=== PATIENT | female | born 1980 | race Caucasian/White ===

== ENCOUNTER → 2016-09-11 | Outpatient (CLI) | payer OTHER ==
--- NOTE | 2016-09-11 13:09 | REP ---
Clinical: lower back pain. Technique: AP, lateral, bilateral oblique, and coned-down views. Findings: Alignment and lordosis is maintained. The vertebral bodies including transverse process and spinous processes are intact and normal. There is no evidence for acute fracture / compression injury or subluxation. No evidence for spondylolysis or spondylolisthesis. No significant degenerative change is noted. Impression: Normal lumbosacral spine radiograph series. Signed by Nadeem Anthony MD 09/11/2016 12:59 P
== END ==
LOC: M RAD 12:02
PROVIDERS: ATTEND Family Medicine
DX: M54.5 Low back pain (principal)

== ENCOUNTER → 2017-07-27 | Outpatient (REF) | payer OTHER ==
[2017-07-27 12:34] LABS: CHOLESTEROL LEVEL 235 MG/DL (<200); CHOLESTEROL RISK RATIO 4.196 (<5); GLUCOSE, FASTING 99 MG/DL (70-105); HDL CHOLESTEROL 56 MG/DL (>40); LDL CHOLESTEROL 152.4 MG/DL (<100); NON-HDL-C 179 MG/DL; TRIGLYCERIDES LEVEL 133 MG/DL (<150)
== END ==
LOC: M SFHCPLAZ 09:49
DX: Z13.6 Encounter for screening for cardiovascular disorders (principal); E66.9 Obesity, unspecified
CPT/HCPCS: 36415

== ENCOUNTER 2017-09-15 11:27 | Inpatient (IN) | payer OTHER ==
[2017-09-15 13:40] LABS: HEMATOCRIT 40.7 % (36.0-47.0); HEMOGLOBIN 13.7 g/dl (12.0-16.0); MEAN CORPUSCULAR HEMOGLOBIN 28.1 pg (27.0-33.0); MEAN CORPUSCULAR HGB CONC 33.7 g/dl (32.0-36.5); MEAN CORPUSCULAR VOLUME 83.4 fl (80.0-96.0); PLATELET COUNT, AUTOMATED 366 10^3/uL (150-450); RED BLOOD COUNT 4.88 10^6/uL (4.00-5.40); RED CELL DISTRIBUTION WIDTH 13.6 % (11.5-14.5)
[2017-09-15 13:49] LABS: CONTROL LINE HCG INT CTR LINE PRESENT; HCG, SERUM QUALITATIVE NEGATIVE (NEGATIVE)
[2017-09-15 14:06] LABS: AMPHETAMINES LEVEL URINE NEGATIVE (NEGATIVE); BARBITURATES URINE NEGATIVE (NEGATIVE); BENZODIAZEPINES URINE NEGATIVE (NEGATIVE); CANNABINOIDS URINE NEGATIVE (NEGATIVE); COCAINE METABOLITE URINE NEGATIVE (NEGATIVE); METHADONE URINE NEGATIVE (NEGATIVE); OPIATES URINE NEGATIVE (NEGATIVE); PHENCYCLIDINE URINE NEGATIVE (NEGATIVE)
[2017-09-15 14:10] LABS: ALBUMIN 3.6 GM/DL (3.2-5.2); ALKALINE PHOSPHATASE 104 U/L (45-117); ALT/SGPT 18 U/L (12-78); ANION GAP 9 MEQ/L (8-16); AST/SGOT 17 U/L (7-37); BILIRUBIN,DIRECT 0.1 MG/DL (0.0-0.2); BILIRUBIN,TOTAL 0.7 MG/DL (0.2-1.0); BLOOD UREA NITROGEN 11 MG/DL (7-18); CALCIUM LEVEL 8.9 MG/DL (8.5-10.1); CARBON DIOXIDE LEVEL 25 MEQ/L (21-32); CHLORIDE LEVEL 107 MEQ/L (98-107); ETHYL ALCOHOL (ETHANOL) 0.003 % (0.000-0.010); GLOMERULAR FILTRATION RATE > 60.0 (>60); GLUCOSE, FASTING 91 MG/DL (70-100); POTASSIUM SERUM 3.9 MEQ/L (3.5-5.1); SALICYLATE LEVEL < 1.7 MG/DL (5.0-30.0); SODIUM LEVEL 141 MEQ/L (136-145); TOTAL PROTEIN 7.6 GM/DL (6.4-8.2)
[2017-09-15 14:11] LABS: ACETAMINOPHEN LEVEL < 2.0 UG/ML (10.0-30.0)
[2017-09-15] MEDS ORDERED: MOM 30ML SUSPENSION UDC PO (15:15)
[2017-09-15] MEDS ORDERED: OLANZapine 5 MG TAB PO (15:15)
[2017-09-15] MEDS ORDERED: MAALOX 30 ML SUSP *UDC PO (15:15)
[2017-09-15] MEDS: traZODone 50 MG TAB PO (21:06)
[2017-09-16] MEDS: ACETAMINOPHEN TAB 650MG DOSE (2X325MG) PO (08:29)
[2017-09-16] MEDS ORDERED: FLUoxetine 10 MG CAP PO (09:00)
[2017-09-16] MEDS: FLUoxetine 10 MG CAP PO (10:03)
[2017-09-16] MEDS: hydrOXYzine 25 MG TAB PO (10:04)
[2017-09-16] MEDS: traZODone 50 MG TAB PO (21:39)
[2017-09-17] MEDS: FLUoxetine 10 MG CAP PO (08:27)
[2017-09-17] MEDS: hydrOXYzine 25 MG TAB PO (21:04)
[2017-09-17] MEDS: traZODone 50 MG TAB PO (21:04)
[2017-09-18] MEDS: FLUoxetine 20 MG CAP PO (08:46)
[2017-09-18] MEDS: hydrOXYzine 25 MG TAB PO (21:07)
[2017-09-19] MEDS: FLUoxetine 20 MG CAP PO (08:10)
[2017-09-19 13:38] LABS: HEMATOCRIT 39.5 % (36.0-47.0); HEMOGLOBIN 13.3 g/dl (12.0-16.0); MEAN CORPUSCULAR HEMOGLOBIN 28.3 pg (27.0-33.0); MEAN CORPUSCULAR HGB CONC 33.7 g/dl (32.0-36.5); PLATELET COUNT, AUTOMATED 294 10^3/uL (150-450); RED CELL DISTRIBUTION WIDTH 13.4 % (11.5-14.5); WHITE BLOOD COUNT 9.2 10^3/uL (4.0-10.0)
[2017-09-19 14:01] LABS: ALBUMIN 3.7 GM/DL (3.2-5.2); ALBUMIN/GLOBULIN RATIO 0.95 (1.00-1.93); ALKALINE PHOSPHATASE 101 U/L (45-117); ALT/SGPT 21 U/L (12-78); ANION GAP 11 MEQ/L (8-16); AST/SGOT 19 U/L (7-37); BILIRUBIN,TOTAL 0.6 MG/DL (0.2-1.0); BLOOD UREA NITROGEN 14 MG/DL (7-18); CALCIUM LEVEL 8.9 MG/DL (8.5-10.1); CARBON DIOXIDE LEVEL 25 MEQ/L (21-32); CHLORIDE LEVEL 102 MEQ/L (98-107); GLOMERULAR FILTRATION RATE > 60.0 (>60); GLUCOSE, FASTING 116 MG/DL (70-100); MAGNESIUM LEVEL 2.3 MG/DL (1.8-2.4); POTASSIUM SERUM 3.8 MEQ/L (3.5-5.1); SODIUM LEVEL 138 MEQ/L (136-145); TOTAL PROTEIN 7.6 GM/DL (6.4-8.2)
[2017-09-19] MEDS: traZODone 50 MG TAB PO (21:00)
[2017-09-20] MEDS: FLUoxetine 20 MG CAP PO (08:30)
[2017-09-20] MEDS: ACETAMINOPHEN TAB 650MG DOSE (2X325MG) PO ×3 (08:30→21:06)
[2017-09-20] MEDS: traZODone 50 MG TAB PO (21:06)
[2017-09-21] MEDS: FLUoxetine 20 MG CAP PO (08:36)
[2017-09-21] MEDS ORDERED: IBUPROFEN 400 MG TAB PO (11:30)
[2017-09-21] MEDS: traZODone 50 MG TAB PO (20:57)
[2017-09-22] MEDS: FLUoxetine 20 MG CAP PO (09:10)
== END 2017-09-22 15:10 | disposition home or self-care (01) | DRG 882 ==
LOC: M PSY 09-21 13:25 → M ED 11:27 → M ED INP 15:09 → M PSY 17:08
DX: F43.23 Adjustment disorder with mixed anxiety and depressed mood (principal); F41.1 Generalized anxiety disorder; G43.909 Migraine, unspecified, not intractable, without status migrainosus; M54.5 Low back pain; Z88.0 Allergy status to penicillin; Z91.018 Allergy to other foods

== ENCOUNTER → 2017-11-24 | Outpatient (REF) | payer OTHER ==
[2017-11-24 16:23] LABS: HEMATOCRIT 40.3 % (36.0-47.0); HEMOGLOBIN 13.2 g/dl (12.0-15.5); MEAN CORPUSCULAR HEMOGLOBIN 28.2 pg (27.0-33.0); MEAN CORPUSCULAR HGB CONC 32.8 g/dl (32.0-36.5); MEAN CORPUSCULAR VOLUME 86.1 fl (80.0-96.0); PLATELET COUNT, AUTOMATED 312 10^3/uL (150-450); RED BLOOD COUNT 4.68 10^6/uL (4.00-5.40); WHITE BLOOD COUNT 6.8 10^3/uL (4.0-10.0)
[2017-11-24 16:30] LABS: RHEUMATOID FACTOR QUANT < 10.0 IU/ML (<15.0); TOTAL 25(OH) VITAMIN D 19.1 NG/ML (30.0-100.0); VITAMIN B12 LEVEL 307 PG/ML (247-911)
[2017-11-28 00:09] LABS: ANTINUCLEAR ANTIBODIES DIRECT Negative (Negative)
[2017-11-28 00:09] LABS: CYCLIC CITRULLINATED PEPTIDE 6 units (0-19)
[2017-11-28 14:19] LABS: HPV HYBRID CAPTURE II Negative (Negative)
== END ==
LOC: M SFHCPLAZ 13:39
DX: Z12.4 Encounter for screening for malignant neoplasm of cervix (principal); M25.50 Pain in unspecified joint; Z86.2 Personal history of diseases of the blood and blood-forming organs and certain disorders involving the immune mechanism; R41.3 Other amnesia

== ENCOUNTER → 2017-12-06 | Outpatient (REF) | LOC: M SMT 13:02 | DX: Z02.9 Encounter for administrative examinations, unspecified (principal) ==

== ENCOUNTER → 2017-12-20 | Outpatient (REF) | payer OTHER ==
[2017-12-21 12:03] LABS: C REACTIVE PROTEIN QUANTITATIV 3.73 MG/DL (0.00-0.30)
[2017-12-21 12:08] LABS: ERYTHROCYTE SEDIMENTATION RATE 52 mm/hr (0-20)
[2017-12-21 12:11] LABS: BASO % 0.4 % (0.0-1.0); EOS # 0.1 10^3/uL (0.0-0.50); EOS % 1.1 % (0.0-3.0); HEMOGLOBIN 12.6 g/dl (12.0-15.5); IMMATURE GRANULOCYTE % 0.3 % (0-3.0); LYMPH # 2.3 10^3/uL (1.5-4.5); LYMPH % 20.2 % (24.0-44.0); MEAN CORPUSCULAR HEMOGLOBIN 28.5 pg (27.0-33.0); MEAN CORPUSCULAR HGB CONC 33.2 g/dl (32.0-36.5); MONO # 0.7 10^3/uL (0.0-0.8); MONO % 6.1 % (0.0-5.0); NEUTROPHILS # 8.2 10^3/uL (1.8-7.7); NEUTROPHILS % 71.9 % (36.0-66.0); PLATELET COUNT, AUTOMATED 297 10^3/uL (150-450); RED BLOOD COUNT 4.42 10^6/uL (4.00-5.40); WHITE BLOOD COUNT 11.4 10^3/uL (4.0-10.0)
== END ==
LOC: M SFHCPLAZ 11:39
DX: L27.8 Dermatitis due to other substances taken internally (principal)
CPT/HCPCS: 86140

== ENCOUNTER → 2018-04-15 | Outpatient (CLI) | payer OTHER ==
[2018-04-15 12:15] LABS: BASO % 0.2 % (0.0-1.0); EOS # 0.1 10^3/uL (0.0-0.50); EOS % 0.8 % (0.0-3.0); HEMOGLOBIN 11.8 g/dl (12.0-15.5); IMMATURE GRANULOCYTE % 0.3 % (0-3.0); LYMPH # 1.5 10^3/uL (1.5-4.5); LYMPH % 24.2 % (24.0-44.0); MEAN CORPUSCULAR HEMOGLOBIN 28.1 pg (27.0-33.0); MEAN CORPUSCULAR HGB CONC 31.9 g/dl (32.0-36.5); MEAN CORPUSCULAR VOLUME 88.1 fl (80.0-96.0); MONO # 0.5 10^3/uL (0.0-0.8); MONO % 7.5 % (0.0-5.0); NEUTROPHILS # 4.2 10^3/uL (1.8-7.7); PLATELET COUNT, AUTOMATED 297 10^3/uL (150-450); RED CELL DISTRIBUTION WIDTH 13.9 % (11.5-14.5); WHITE BLOOD COUNT 6.3 10^3/uL (4.0-10.0)
[2018-04-15 12:33] LABS: ERYTHROCYTE SEDIMENTATION RATE 43 mm/hr (0-20)
[2018-04-15 12:52] LABS: ALBUMIN 3.1 GM/DL (3.2-5.2); ALBUMIN/GLOBULIN RATIO 0.78 (1.00-1.93); ALKALINE PHOSPHATASE 87 U/L (45-117); ALT/SGPT 17 U/L (12-78); ANION GAP 8 MEQ/L (8-16); AST/SGOT 8 U/L (7-37); BILIRUBIN,TOTAL 0.2 MG/DL (0.2-1.0); BLOOD UREA NITROGEN 14 MG/DL (7-18); CALCIUM LEVEL 8.8 MG/DL (8.5-10.1); CARBON DIOXIDE LEVEL 26 MEQ/L (21-32); CHLORIDE LEVEL 106 MEQ/L (98-107); FREE THYROXINE INDEX 4.1 % (1.3-4.8); GLOMERULAR FILTRATION RATE > 60.0 (>60); GLUCOSE, FASTING 87 MG/DL (70-100); POTASSIUM SERUM 4.9 MEQ/L (3.5-5.1); RHEUMATOID FACTOR QUANT < 10.0 IU/ML (<15.0); SODIUM LEVEL 140 MEQ/L (136-145); T UPTAKE 27 % (30-39); THYROID STIMULATING HORMONE 0.986 uIU/ML (0.358-3.740); TOTAL PROTEIN 7.1 GM/DL (6.4-8.2)
[2018-04-16 11:17] LABS: FOLATE 6.4 NG/ML
== END ==
LOC: M LAB 11:26
DX: R41.3 Other amnesia (principal)
CPT/HCPCS: 82746

== ENCOUNTER → 2018-12-04 | Outpatient (REF) | payer OTHER ==
[~2018-12-04] MED LIST: FLUO20CA19 PO; TRAZO50TA PO; VENTAER INH
[2018-12-04 11:58] LABS: HEMATOCRIT 39.2 % (36.0-47.0); HEMOGLOBIN 12.2 g/dl (12.0-15.5); MEAN CORPUSCULAR HEMOGLOBIN 26.9 pg (27.0-33.0); MEAN CORPUSCULAR HGB CONC 31.1 g/dl (32.0-36.5); MEAN CORPUSCULAR VOLUME 86.3 fl (80.0-96.0); PLATELET COUNT, AUTOMATED 342 10^3/uL (150-450); RED BLOOD COUNT 4.54 10^6/uL (4.00-5.40); WHITE BLOOD COUNT 6.3 10^3/uL (4.0-10.0)
[2018-12-04 12:38] LABS: ERYTHROCYTE SEDIMENTATION RATE 48 mm/hr (0-20)
[2018-12-04 13:03] LABS: CHOLESTEROL RISK RATIO 5.5 (<5); FREE T4 0.72 NG/DL (0.76-1.46); THYROID STIMULATING HORMONE 0.703 uIU/ML (0.358-3.740)
== END ==
LOC: M SFHCPLAZ 10:51
PROVIDERS: ATTEND Family Medicine
DX: Z13.220 Encounter for screening for lipoid disorders (principal); D64.9 Anemia, unspecified; R70.0 Elevated erythrocyte sedimentation rate; R79.89 Other specified abnormal findings of blood chemistry

== ENCOUNTER → 2019-02-20 | Outpatient (CLI) | payer OTHER ==
[~2019-02-20] MED LIST changes: +TRAZ1TAB10 PO; -TRAZO50TA PO
[2019-02-20 16:59] LABS: FOLATE > 24.0 NG/ML; VITAMIN B12 LEVEL 626 PG/ML
== END ==
LOC: M LAB 15:54
PROVIDERS: ATTEND Psychiatry & Neurology Neurology
DX: E53.8 Deficiency of other specified B group vitamins (principal)